=== PATIENT | female | born 1990 | race African-American/Black ===

== ENCOUNTER 2024-11-22 11:55 | Emergency (ER) | payer OTHER ==
[~2024-11-22] VITALS: Ht 149.9 cm; Wt 54.5 kg
[2024-11-22 12:11] VITALS: BP 111/81; PULSE 90; RESP 18; TEMP 98.1; O2SAT 99
[2024-11-22 13:11] LABS: APPEARANCE,URINE HAZY (CLEAR); GLUCOSE, URINE (UA) NEGATIVE (NEGATIVE); LEUKOCYTE ESTERASE ,URINE SMALL (NEGATIVE); NITRATE,URINE NEGATIVE (NEGATIVE); OCCULT BLOOD,URINE NEGATIVE (NEGATIVE); SPECIFIC GRAVITIY, URINE 1.019 (1.003-1.030)
[2024-11-22 13:18] LABS: HCG,QUAL URINE NEGATIVE (NEGATIVE)
[2024-11-22 13:22] LABS: SQUAMOUS EPITHELIAL CELL,UR Many /LPF (None Seen)
[2024-11-22] MEDS ORDERED: FLUC150T61 PO (14:41)
[2024-11-22] MEDS: FLUCONAZOLE 150 MG TABLET PO ONE (14:54)
== END 2024-11-22 14:55 | disposition home or self-care (01) ==
LOC: EMS 11:55
DX: B37.31 Acute candidiasis of vulva and vagina (principal); L29.9 Pruritus, unspecified; R30.0 Dysuria; A59.9 Trichomoniasis, unspecified; Z91.040 Latex allergy status
CPT/HCPCS: 81001; 84703; 87210; 99283

== ENCOUNTER 2024-12-11 15:29 | Emergency (ER) | payer MEDICAID, OTHER ==
[~2024-12-11] VITALS: Ht 149.9 cm; Wt 55.5 kg
[~2024-12-11 15:29] MED LIST: FLUC150T61 PO
[2024-12-11 15:50] VITALS: TEMP 97.9
[2024-12-11] MEDS: KETOROLAC TROMETHAMINE 30 MG/ML VIAL IM ONE (17:26)
[2024-12-11] MEDS: LIDOCAINE 5% TRANSDERMAL PATCH TD ONE (17:26)
[2024-12-11] MEDS ORDERED: IBUP-1492 PO (17:56)
[2024-12-11 18:11] VITALS: BP 116/90; PULSE 82; RESP 18; O2SAT 100
== END 2024-12-11 18:20 | disposition home or self-care (01) ==
LOC: EMS 15:30
DX: M54.14 Radiculopathy, thoracic region (principal); Z91.040 Latex allergy status; Z79.899 Other long term (current) drug therapy; V43.52XA Car driver injured in collision with other type car in traffic accident, initial encounter; Y93.89 Activity, other specified; Y92.410 Unspecified street and highway as the place of occurrence of the external cause; Y99.8 Other external cause status
CPT/HCPCS: 99283; 96372; J1885